=== PATIENT | female | born 1935 | race Caucasian/White ===

== ENCOUNTER 2021-02-20 08:27 | Emergency (ER) | payer MEDICARE, OTHER ==
[~2021-02-20] VITALS: Ht 152.4 cm; Wt 72.7 kg
[2021-02-20] MEDS ORDERED: PRED20TA PO (10:06)
[2021-02-20] MEDS ORDERED: predniSONE 20 mg tablet PO ONE (10:10)
[2021-02-20 10:20] VITALS: BP 146/76
== END 2021-02-20 10:22 | disposition home or self-care (01) ==
LOC: ER 08:28
DX: U07.1 COVID-19 (principal); R51.9 Headache, unspecified; Z88.1 Allergy status to other antibiotic agents; Z88.6 Allergy status to analgesic agent; Z79.899 Other long term (current) drug therapy
CPT/HCPCS: 87502; 87503; 87635; 99283; C9803; J7512